=== PATIENT | female | born 1930 | race Caucasian/White ===

== ENCOUNTER → 2018-08-05 15:56 | Emergency (ER) | payer MEDICARE ==
--- NOTE | 2018-08-05 18:23 | ED ---
HPI Chest Pain - HPI Summary HPI Summary: 88-year-old female reporting anterior chest wall pain after tripping and falling while cleaning her house 9 days ago. States she landed on her cleaning tray striking her anterior chest. Reports bruising. States lifting, moving, and sneezing worsen the pain. Took a tramadol prior to coming to the ED which she states has improved the pain. Denies hitting head, LOC, dizziness, lightheadedness, palpipations, fever, chills, shortness of breath, cough, abdominal pain, nausea, or vomiting. - History of Current Complaint Chief Complaint: EDChestWallPain Time Seen by Provider: 08/05/18 16:38 Hx Obtained From: Patient, Family/Supervisor [employer] Pain Intensity: 7 - Allergy/Home Medications Allergies/Adverse Reactions: Allergies Allergy/AdvReac Type Severity Reaction Status Date / Time erythromycin base Allergy Hives Verified 08/05/18 16:00 PMH/Surg Hx/FS Hx/Imm Hx Previously Healthy: Yes Endocrine/Hematology History: Denies: Hx Anticoagulant Therapy Cardiovascular History: Reports: Hx Atrial Fibrillation, Hx Hypercholesterolemia , Hx Hypertension Respiratory History: Denies: Hx Asthma, Hx Chronic Obstructive Pulmonary Disease (COPD) Musculoskeletal History: Reports: Hx Arthritis, Other Musculoskeletal History - RLS Neurological History: Denies: Hx CVA, Hx Dementia, Hx Seizures Infectious Disease History: No Infectious Disease History: Denies: Traveled Outside the [place] in Last 30 Days - Family History Known Family History: Positive: Non-Contributory - Social History Occupation: Retired Lives: With Family Alcohol Use: None Substance Use Type: Reports: None Smoking Status (MU): Never Smoked Tobacco Review of Systems Negative: Fever, Chills Negative: Blurred Vision, Diplopia Positive: Other - anterior chest wall pain. Negative: Palpitations, Chest Pain Negative: Shortness Of Breath, Cough Negative: Abdominal Pain, Vomiting, Diarrhea, Nausea Genitourinary: Negative Musculoskeletal: Negative Positive: Bruising Negative: Headache, Weakness, Paresthesia, Numbness, Syncope, Slurred Speech All Other Systems Reviewed And Are Negative: Yes Physical Exam - Summary Physical Exam Summary: GENERAL APPEARANCE: Well developed, well nourished, alert and cooperative, and appears to be in no acute distress. HEAD: Atraumatic. normocephalic. NECK: Neck supple, non-tender. CARDIAC: Normal S1 and S2. No S3, S4 or murmurs. Rhythm is regular. There is no peripheral edema, cyanosis or pallor. Extremities are warm and well perfused. Capillary refill is less than 2 seconds. Peripheral pulses intact. LUNGS: Clear to auscultation without rales, rhonchi, wheezing or diminished breath sounds. CHEST: Tenderness with palpation to the anterior chest wall along the sternal borders. No crepitus or SC emphysema noted. ABDOMEN: Positive bowel sounds. Soft, nondistended, nontender. No guarding or rebound. No masses or hepatosplenomegally. MUSKULOSKELETAL: ROM intact to all extremities. No joint erythema or tenderness. Normal muscular development. Normal gait. BACK: Examination of the spine reveals normal gait and posture, no spinal deformity or tenderness, decreased range of motion or muscular spasm. NEUROLOGICAL: CN II-XII intact. Strength and sensation symmetric and intact throughout. Reflexes 2+ throughout. SKIN: Skin normal color, texture and turgor. Ecchymosis of the lower right breast without hematoma or mass noted. Triage Information Reviewed: Yes Vital Signs On Initial Exam: Initial Vitals Temp Pulse Resp BP Pulse Ox 98.8 F 62 18 167/81 97 08/05/18 16:00 08/05/18 16:00 08/05/18 16:00 08/05/18 16:00 08/05/18 16:00 Vital Signs Reviewed: Yes Diagnostics - Vital Signs Vital Signs Temp Pulse Resp BP Pulse Ox 08/05/18 16:00 98.8 F 62 18 167/81 97 - Laboratory Lab Statement: Any lab studies that have been ordered have been reviewed, and results considered in the medical decision making process. - Radiology No standard instances Radiology Interpretation Completed By: ED Physician - No acute cardiopulmonary pathololgy. Questionable non-displaced fracture of the 3rd right rib. Chest Pain Course/Dx - Course Course Of Treatment: 88-year-old female reporting anterior chest wall pain after tripping and falling while cleaning her house 9 days ago. States she landed on her cleaning tray striking her anterior chest. Reports bruising. States lifting, moving, and sneezing worsen the pain. Took a tramadol prior to coming to the ED which she states has improved the pain. Denies hitting head, LOC, dizziness, lightheadedness, palpipations, fever, chills, shortness of breath, cough, abdominal pain, nausea, or vomiting. Afebrile. Hypertensive otherwise VSS. Exam was remarkable for some anterior chest wall tenderness along the sternal borders with crepitus or SC emphysema, and ecchymosis to the lower right breast. CXR was negative for acute cardiopulmonary pathology. There is an area on the 3rd right rib for a questionable non-displaced fracture. Final reading pending. Will treat for a chest wall contusion. She is to continue to use her tramadol as directed for pain. Reviewed dep breathing exercises with patient and daughter for prevention of pneumonia. She is to follow up in 3 days with her PCP. Anticipatory guidance and warning symptoms reviewed with patient and daughter. Verbalize understanding and agree with POC. - Chest Pain Differential Diagnosis/HQI/PQRI: Chest Wall, Other: - rib fracture, sternum fracture, pneumonia - Diagnoses Provider Diagnoses: Chest wall contusion Discharge - Sign-Out/Discharge Documenting (check all that apply): Patient Departure Patient Received Moderate/Deep Sedation with Procedure: No - Discharge Plan Condition: Stable Disposition: HOME Patient Education Materials: Chest Wall Pain (ED) Referrals: Skinny Young MD [Primary Care Provider] - 3 Days Additional Instructions: The chest x-ray performed in the emergency room today showed normal heart and lungs. I see an area that is questionable for a non-displaced fracture of the right 3rd rib but I am sure that you have a bad contusion (bruising) of the chest. The radiologist will review this x-ray tomorrow and we will notify you if they see any thing that would change your plan of care. Use your pain medication as directed as needed for pain. It is important that you do deep breathing exercises as we discussed every 1-2 hours while awake to help prevent pneumonia. Follow up with your primary care provider in 3 days for recheck of symptoms. Return to the emergency room if you develop fever greater than 100.5 F, have worsening chest pain, shortness of breath, cough up blood, or any worsening of symptoms. - Billing Disposition and Condition Condition: STABLE Disposition: Home
[2018-08-05 19:36] VITALS: BP 175/79
== END | disposition home or self-care (01) ==
LOC: ED 15:56
DX: S20.219A Contusion of unspecified front wall of thorax, initial encounter (principal); R07.89 Other chest pain; I10 Essential (primary) hypertension; I48.91 Unspecified atrial fibrillation; W01.0XXA Fall on same level from slipping, tripping and stumbling without subsequent striking against object, initial encounter; Y92.9 Unspecified place or not applicable
CPT/HCPCS: 71046; 99282